=== PATIENT | female | born 1995 | race Hispanic/Latino ===

== ENCOUNTER 2021-05-04 20:05 | Emergency (ER) | payer BC, MEDICAID ==
[~2021-05-04] VITALS: Ht 152.4 cm; Wt 79.4 kg
[~2021-05-04 20:05] MED LIST: FERR-82 PO
[2021-05-04 22:00] LABS: APPEARANCE,URINE Cloudy (CLEAR); BILIRUBIN,URINE Negative (NEGATIVE); COLOR,URINE Yellow (YELLOW); GLUCOSE, URINE (UA) Negative (NEGATIVE); KETONES,URINE 15 mg/dL (NEGATIVE); LEUKOCYTE ESTERASE ,URINE Trace (NEGATIVE); NITRATE,URINE Negative (NEGATIVE); OCCULT BLOOD,URINE Negative (NEGATIVE); PH,URINE 5.5 (5.0-8.0); PROTEIN,URINE Negative (NEGATIVE)
[2021-05-04] MEDS ORDERED: CEFTRIAXONE 1G VIAL IM ONE (22:00)
[2021-05-04] MEDS ORDERED: CLINDAMYCIN 150 MG CAP PO ONE (22:00)
[2021-05-04 22:08] LABS: BACTERIA,URINE Few /HPF (None Seen); MUCUS,URINE Moderate LPF (None Seen); SQUAMOUS EPITHELIAL CELL,UR Moderate /HPF (0-2)
[2021-05-04] MEDS ORDERED: LIDOCAINE HCL-MPF 1% 2ML VIAL ONE (22:26)
[2021-05-04] MEDS ORDERED: SULF1TAB42 PO (22:27)
[2021-05-04 23:01] VITALS: BP 124/74
== END 2021-05-04 20:58 | disposition home or self-care (01) ==
LOC: EDH 20:05
DX: L02.416 Cutaneous abscess of left lower limb (principal); R82.71 Bacteriuria; R51.9 Headache, unspecified; R50.9 Fever, unspecified; Z20.822 Contact with and (suspected) exposure to COVID-19
CPT/HCPCS: 81001; 87088; 87635; 96372; 99284; C9803; J0696; J3490

== ENCOUNTER 2025-01-02 22:25 | Emergency (ER) | payer BC, MEDICAID ==
[~2025-01-02] VITALS: Ht 152.4 cm; Wt 77.6 kg
[~2025-01-02 22:25] MED LIST changes: +SULF1TAB42 PO
[2025-01-02] MEDS: ORPHENADRINE 60MG/2ML IM ONE (23:07)
[2025-01-02] MEDS: LACTATED RINGERS 1000ML IV STA (23:07)
[2025-01-02 23:10] LABS: APPEARANCE,URINE CLOUDY (CLEAR); GLUCOSE, URINE (UA) 30 mg/dL (NEGATIVE); LEUKOCYTE ESTERASE ,URINE NEGATIVE Leu/uL (NEGATIVE); NITRATE,URINE NEGATIVE (NEGATIVE); OCCULT BLOOD,URINE NEGATIVE (NEGATIVE)
[2025-01-02 23:14] LABS: HCG,QUALITATIVE URINE NEGATIVE (NEGATIVE)
[2025-01-02 23:15] LABS: ADD UA MICROSCOPIC YES
--- NOTE | 2025-01-02 23:15 | ERN ---
General Chief Complaint: Pelvic Pain Stated Complaint: PELVIC PAIN Time Seen by MD: 22:39 Source: patient, family History of Present Illness Initial Comments 29-year-old female healthy who comes in with a excruciating pelvic pain. She has already been seen at a urgent care facility today where they did a UA and it was normal. They did a CT scan which was read out as normal except for a fibroid 7 x 6 cm. They did a CBC which was normal as well. While I was examining the patient the patient's mother noted that the patient has had multiple bouts of emesis over the last two days from food allergy or poisoning or gastroenteritis. These episodes are decreasing today. In addition the patient lifts weights to be healthy. Patient has had her tubes tied and does not think she is . She also does not report any dysuria or vaginal discharge. Allergies: Coded Allergies: No Known Allergies (Unverified Allergy, Unknown, 10/07/14) Home Meds Active Scripts Sulfamethoxazole/Trimethoprim (Bactrim Ds Tablet) 1 Each Tablet, 1 TAB PO BID for 10 Days, #20 TAB 0 Refills Prov:WENDY FINE MD 05/04/21 Reported Medications Ferrous Sulfate (Iron) 325 Mg Tablet, PO TID, TAB 10/07/14 Past Medical History Past Medical History: No Pertinent History Past Surgical History: Cholecystectomy, BTL Female( History) LMP: Dec 22, 2024 Constitutional: (-) chills, (-) diaphoresis, (-) fever, (-) malaise, (-) weakness, (-) other documentation EENTM: (-) eye pain, (-) blurred vision, (-) tearing, (-) double vision, (-) ear pain, (-) ear discharge, (-) nose pain, (-) nose congestion, (-) throat pain, (-) Throat swelling, (-) mouth pain, (-) tooth pain, (-) mouth swelling, (-) other documentation Respiratory: (-) cough, (-) orthopnea, (-) short of breath, (-) stridor, (-) wheezing, (-) other documentation Cardiovascular: (-) chest pain, (-) edema, (-) palpitations, (-) syncope, (-) dyspnea on exertion, (-) other documentation Gastrointestinal/Abdominal: (+) nausea, (+) vomiting, (+) diarrhea Genitourinary: (-) vaginal discharge, (-) vaginal bleeding, (-) dysuria, (-) fr equency, (-) hematuria, (-) pain, (-) other documentation Musculoskeletal: (-) Neck pain, (-) back pain, (-) Flank Pain, (-) joint pain, (-) joint swelling, (-) muscle pain, (-) muscle stiffness, (-) gout, (-) other documentation Skin: (-) laceration, (-) contusion, (-) abrasion, (-) abscess, (-) rash, (-) change in color, (-) change in hair, (-) change in nails, (-) diaphoresis, (-) dryness, (-) other documentation Physical Exam General Appearance: (+) moderate distress Orientation: (+) alert, (+) oriented x 3 Head/Face Trauma: No Eye: bilateral eye normal inspection, bilateral eye PERRL, bilateral eye EOMI Ear, Nose, Throat: (+) hearing grossly normal, (+) normal ENT inspection, (+) moist mucous membraine, (+) normal pharynx Neck: (+) normal inspection, (+) supple, (+) full range of motion Respiratory: (+) chest non-tender, (+) lungs clear, (+) well ventilated Heart: (+) regular, (+) no gallop Vascular: (+) no edema, (+) normal peripheral pulse, (+) no JVD Gastrointestinal: (+) soft, (+) bowel sound present, (+) tender Gastrointestinal Comment Patient's abdominal tenderness is worse down in the middle pelvic region. But it also occurs all up and down her bilateral rectus sheaths. When I pushed down on the rectus sheath she says the pain runs straight down to her pelvis. In addition when I have her lift her head up off the bed it increases the pain in her abdomen in the rectal sheath areas. I asked her to tense her stomach muscles and she says she can not because of the pain. Results Laboratory and Microbiology Lab and Micro Result Laboratory Tests Test 01/02/25 22:39 01/03/25 00:46 Urine Color YELLOW (YELLOW) Urine Appearance CLOUDY (CLEAR) H Urine pH 6.0 (5.0-8.0) Urine Specific Riley 1.043 (1.001-1.031) Urine Protein 50 mg/dL (NEGATIVE) H Urine Glucose (UA) 30 mg/dL (NEGATIVE) H Urine Ketones 10 mg/dL (NEGATIVE) H Urine Occult Blood NEGATIVE (NEGATIVE) Urine Nitrate NEGATIVE (NEGATIVE) Urine Bilirubin 0.5 mg/dL (NEGATIVE) H Urine Urobilinogen 2.0 mg/dL (0.2-1.0) H Urine Leukocyte Esterase NEGATIVE Sam/uL Urine RBC 2-5 /HPF (0-1) H Urine WBC 11-25 /HPF (0-1) H Urine Squamous Epithelial Cells MOD /HPF (0-2) Urine Bacteria FEW /HPF (None Seen) Urine HCG, Qualitative NEGATIVE (NEGATIVE) White Blood Count 8.3 K/uL (4.8-10.8) Red Blood Count 3.67 MIL/uL (4.00-5.50) L Hemoglobin 11.1 g/dL (12.0-16.0) L Hematocrit 34.5 % (36-48) L Mean Corpuscular Volume 94.0 fL (79-99) Mean Corpuscular Hemoglobin 30.2 pg (27.0-33.0) Mean Corpuscular Hemoglobin Concent 32.2 g/dL (32.0-36.0) Red Cell Distribution Width 14.2 % (11.0-15.5) Platelet Count 237 K/uL (130-400) Mean Platelet Volume 11.2 fL (7.5-10.5) H Immature Granulocyte % (Auto) 0.2 % (0-1) Neutrophils (%) (Auto) 66.3 % (40.0-77.0) Lymphocytes (%) (Auto) 25.5 % (21.0-51.0) Monocytes (%) (Auto) 6.2 % (3.0-13.0) Eosinophils (%) (Auto) 1.3 % (0.0-8.0) Basophils (%) (Auto) 0.5 % (0.0-5.0) Neutrophils # (Auto) 5.5 K/uL (1.8-7.7) Lymphocytes # (Auto) 2.1 K/uL (1.0-4.8) Monocytes # (Auto) 0.5 K/uL (0.1-1.0) Eosinophils # (Auto) 0.11 K/uL (0.00-0.70) Basophils # (Auto) 0.04 K/uL (0.00-0.20) Absolute Immature Granulocyte (auto 0.02 K/uL (0-1) Nucleated Red Blood Cells 0.0 % (0.0-0.19) Sodium Level 142 mmol/L (136-145) Potassium Level 3.4 mmol/L (3.5-5.1) L Chloride Level 107 mmol/L (101-111) Carbon Dioxide Level 31 mmol/L (21-32) Blood Urea Nitrogen 7 mg/dL (7-18) Creatinine 0.6 mg/dL (0.5-1.0) Glomerular Filtration Rate Calc 123 mL/min (>90) Random Glucose 94 mg/dL (70-105) Total Calcium 8.6 mg/dL (8.5-10.1) Total Bilirubin 0.3 mg/dL (0.2-1.0) Aspartate Amino Transf (AST/SGOT) 24 U/L (10-37) Alanine Aminotransferase (ALT/SGPT) 30 U/L (12-78) Alkaline Phosphatase 85 U/L (50-136) Total Protein 6.5 g/dL (6.0-8.3) Albumin 3.2 g/dL (3.5-5.0) L MDM MDM: Differential diagnosis: Rectal muscle strain from emesis, UTI, fibroid pain, STD, UA, no patient already has a gallbladder out. Rationale: Tests considered and ordered secondary to shared decision making include: Previous outside records reviewed: Old ER visits. Risk of complication and/or morbidity or mortality of patient management: None Medications-Per medication reconciliation Need for hospitalization: Patient does meet criteria for hospitalization. Need for emergency major/minor surgery: No There are no social concerns with this patient. Prescription drug management Prescriptions will include symptomatic care Patient's prior external medical records from other ER visits were reviewed by me as indicated. Prior testing and results from previous visits were reviewed. Prior tests were taken into account with medical decision making and resource utilization, independent historian/historians were used to obtain complete medical history. I independently interpreted the test that were performed, results were reviewed by me and considered findings on radiology if ordered. Patient's pain did not get better with muscle relaxants and fluid. The chemistry panel CBC and UA were all unremarkable. The UA did show strong evidence of dehydration; however, 2 L of fluid did not alleviate the patient's symptoms. Transvaginal ultrasound elicited large amounts of pain throughout the entire exam. Patient's pain seemed to be more midline than anywhere else. The wafer line worker did feel like the the fibroid etienne has been the central focus of the patient's pain. I will give the patient some pain medications and she can follow-up with a direct care counselor. ED Course Orders Procedure Category Date Status Time Lactated Ringers PHA 01/02/25 Complete 1000ml (Lactated 22:59 Orphenadrine Citrate PHA 01/02/25 Complete (Norflex) 23:00 Ketorolac PHA 01/02/25 Complete Tromethamine 30mg/Ml 23:00 Chlamydia & Gc Pcr APRYL 01/02/25 In Process 22:59 ,Urine Test LAB 01/02/25 Complete 22:59 Urinalysis Profile LAB 01/02/25 Complete 22:59 Culture Urine APRYL 01/02/25 In Process 23:17 Cbc With Differential LAB 01/03/25 Complete 00:27 Comprehensive LAB 01/03/25 Complete Metabolic Panel 00:27 Lactated Ringers PHA 01/03/25 Complete 1000ml (Lactated 00:27 Morphine 2mg Syg PHA 01/03/25 Complete (Morphine 2mg Syg) 01:00 Us Pelvic Non-Ob Comp US 01/03/25 Taken 01:18 Hydromorphone 0.5mg PHA 01/03/25 Complete Syg (Dilaudid 0.5mg 02:30 Current Medications Medications (Trade) Dose Ordered Sig/Mayela Route PRN Reason Start Time Stop Time Status Last Admin Dose Admin Hydromorphone HCl (DiLAUDid 0.5MG INJ) 0.2 mg ONCE ONCE IVP 01/03/25 02:30 01/03/25 02:32 DC 01/03/25 02:37 Ketorolac Tromethamine (toRADol) 30 mg ONCE ONCE IVP 01/02/25 23:00 01/02/25 23:02 DC 01/02/25 23:07 Lactated Ringer's (Lactated Ringers 1000ml) 1,000 ml BOLUS STAT IV 01/02/25 22:59 01/02/25 23:01 DC 01/02/25 23:07 Lactated Ringer's (Lactated Ringers 1000ml) 1,000 ml BOLUS STAT IV 01/03/25 00:27 01/03/25 00:33 DC 01/03/25 00:42 Morphine Sulfate (morPHINE 2MG SYG) 2 mg ONCE ONCE IVP 01/03/25 01:00 01/03/25 01:01 DC 01/03/25 00:42 Orphenadrine Citrate (Norflex) 60 mg ONCE ONCE IM 01/02/25 23:00 01/02/25 23:02 DC 01/02/25 23:07 Vital Signs Date Time Temp Pulse Resp B/P (MAP) Pulse Ox O2 Delivery O2 Flow Rate FiO2 01/03/25 00:10 98.2 78 18 92/53 98 Room Air* 0 21 01/02/25 23:17 78 18 100/66 98 Room Air* 0 21 01/02/25 22:26 98.2 80 18 103/68 98 Room Air 0 DX & DISP Disposition: Discharge Departure Impression: Primary Impression: Uterine fibroid Additional Impression: Dehydration Condition: Stable Scripts Cyclobenzaprine HCl (Flexeril) 10 Mg Tab 10 MG PO TID for muscle sstiffness, #14 TAB 0 Refills Prov: MEGAN LARRY MD 01/03/25 Ketorolac Tromethamine (Toradol) 10 Mg Tab 1 TAB PO Q6HPRN PRN for pain for 5 Days, #20 TAB 0 Refills Prov: MEGAN LARRY MD 01/03/25 Additional Instructions: Your abdominal pain seems to be coming from the uterine fibroid. You did come to the emergency room dehydrated but IV fluids and muscle relaxants did not completely quell the symptoms. I have sent a prescription to your pharmacy for pain control and muscle relaxants to help. You should follow-up with your direct care counselor for further pain management and also definitive therapy. Medications recommended are either Lupron or Depo-Provera. Referrals: VICENTE RUBIO MD (PCP) MEGAN LARRY MD Jan 02, 2025 23:15
[2025-01-02 23:16] LABS: SQUAMOUS EPITHELIAL CELL,UR MOD /HPF (0-2)
[2025-01-03] MEDS: LACTATED RINGERS 1000ML IV STA (00:42)
[2025-01-03 00:53] LABS: IMMATURE GRANULOCYTE ABSOLUTE 0.02 K/uL (0-1); NUCLEATED RED BLOOD CELLS 0.0 % (0.0-0.19); PLATELET COUNT (AUTO) 237 K/uL (130-400); RED BLOOD CELL COUNT(AUTO) 3.67 MIL/uL (4.00-5.50); RED CELL DISTRIBUTION WIDTH 14.2 % (11.0-15.5); WHITE BLOOD COUNT (AUTO) 8.3 K/uL (4.8-10.8)
[2025-01-03 01:02] LABS: CREATININE 0.6 mg/dL (0.5-1.0); GLOMERULAR FILTR. RATE CALC 123.0 mL/min (>90); GLUCOSE,RANDOM 94.0 mg/dL (70-105); SODIUM SERUM 142.0 mmol/L (136-145); UREA NITROGEN, BLOOD 7.0 mg/dL (7-18)
[2025-01-03 01:07] LABS: ASPARTATE AMINOTRANSFERASE 24.0 U/L (10-37); TOTAL PROTEIN, SERUM 6.5 g/dL (6.0-8.3)
--- NOTE | 2025-01-03 02:44 | HMCIMG ---
EXAM: US Pelvis, Complete. CLINICAL HISTORY: Uterine fibroid. TECHNIQUE: Transabdominal pelvic ultrasound (complete) with image documentation. COMPARISON: Ultrasound of the pelvis. 09/09/2012. FINDINGS: ENDOMETRIUM: Normal thickness. Measures 10 mm. UTERUS/CERVIX: Uterus measures 12.7 x 9.0 x 10.0 cm. Anterior wall fibroid with vascularity measuring 6.9 x 8.0 x 7.7 cm. Two small nabothian cysts largest measuring 1.5 x 1.0 x 1.6 cm.. RIGHT OVARY: There appears to be normal Doppler flow on transabdominal images. No abnormal ovarian mass. Measures 4.0 x 1.7 x 2.5 cm. LEFT OVARY: Left adnexa within normal limits. Left ovary obscured. FREE FLUID: No free fluid. IMPRESSION: Large uterine fibroid. This is a new finding. Nabothian cervical cysts. /[place]
[2025-01-03] MEDS ORDERED: OXYC-31 PO (02:47)
[2025-01-03] MEDS ORDERED: KETO10 PO (02:53)
[2025-01-03] MEDS ORDERED: CYCL10TA16 PO (02:54)
[2025-01-03 03:30] VITALS: BP 105/64; PULSE 72; RESP 17; TEMP 98.4; O2SAT 96
== END 2025-01-03 03:31 | disposition home or self-care (01) ==
LOC: EDH 22:25
DX: D25.9 Leiomyoma of uterus, unspecified (principal); E86.0 Dehydration; Z90.49 Acquired absence of other specified parts of digestive tract; Z98.51 Tubal ligation status
CPT/HCPCS: 99285; 96374; 80053; 85025; 87086; 87491; 87591; 81001; 81025; 36415; 96372; 76856; 96375; J1885; J7120 ×2; J2270; J1171; J2360